=== PATIENT | female | born 1970 | race Caucasian/White ===

== ENCOUNTER 2019-11-25 13:17 | Outpatient (CLI) | payer BC, SELFPAY ==
--- NOTE | ~2019-11-25 | US_ITS ---
EXAMINATION: US pelvic complete w TV DATE: 11/25/2019 14:28 INDICATION: Pelvic pain. History of fibroids. Comparison:No prior studies for comparison. TECHNIQUE: Multiple transabdominal and endovaginal sonographic images of the pelvis performed. FINDINGS: The uterus measures 7.4 x 4 x 3.4 cm. There is fluid in the cervix. There are multiple fibr oids identified the largest measuring 1.3 cm maximum dimension. The endometrial complex measures 5 mm . The right ovary measures 2 x 3.7 x 2.2 cm and contains 2 cysts, largest measuring 2.2 cm. The left ov darren not visualized. There is no free fluid in the pelvis. There are no abnormal masses seen on either side. IMPRESSION: 1. Uterine fibroids, largest measuring 1.3 cm maximum dimension. 2: Fluid in the cervix without significant endometrial thickening, nonspecific. 3: Right ovarian cysts, largest measuring 2.2 cm maximum dimension. Reviewed, dictated and finalized at location A.
== END 2019-11-25 13:18 | disposition home or self-care (01) ==
PROVIDERS: Visit Provider Student in an Organized Health Care Education/Training Program
DX: R10.2 Pelvic and perineal pain (principal); D25.9 Leiomyoma of uterus, unspecified; N83.201 Unspecified ovarian cyst, right side
CPT/HCPCS: 76830; 76856

== ENCOUNTER 2022-09-08 08:09 | Outpatient (CLI) | payer BC, SELFPAY ==
[2022-09-08 18:40] LABS: Basophils Absolute Auto 0.1 K/mm3 (0.0-0.1); Basophils Percent Auto 1.1 % (0.2-1.2); Eosinophils Absolute Auto 0.3 K/mm3 (0-0.3); Eosinophils Percent Auto 5.2 % (0-4.4); Hematocrit 39.1 % (37.0-47.0); Hemoglobin 13.5 g/dL (12.0-15.0); Immature Granulocyte Absolute 0.01 K/mm3 (0.00-0.031); Immature Granulocyte Percent A 0.2 % (0-0.5); Lymphocytes Absolute Auto 2.11 K/mm3 (0.9-3.2); Lymphocytes Percent Auto 39.5 % (18.3-44.2); Mean Corpuscular HGB Conc 34.5 g/dl (32-36); Mean Corpuscular Hemoglobin 32.6 pg (26-34); Mean Corpuscular Volume 94.4 fl (80-100); Mean Platelet Volume 9.3 fl (7.4-10.4); Monocytes Absolute Auto 0.3 K/mm3 (0.1-0.6); Monocytes Percent Auto 6.4 % (2.6-8.5); Neutrophils Absolute Auto 2.5 K/mm3 (1.3-6.7); Neutrophils Percent Auto 47.6 % (45.5-73.1); Platelet Count Result 306 k/mm3 (150-375); Red Blood Count 4.14 M/mm3 (4.2-5.4); Red Cell Distribution Width 12.5 % (11.5-14.5); White Blood Count 5.3 K/mm3 (4.5-10.0)
[2022-09-08 19:46] LABS: Alanine Aminotransferase 21 U/L (6-35); Albumin Level 4.5 g/dL (3.5-5.1); Alkaline Phosphatase 74 U/L (38-126); Anion Gap 5 mmol/L (8-16); Aspartate Amino Transferase 37 U/L (14-36); Blood Urea Nitrogen 17 mg/dL (7-17); Calcium 8.8 mg/dL (8.4-10.2); Carbon Dioxide 29 mmol/L (22-30); Chloride 104 mmol/L (98-107); Cholesterol 237 mg/dL (0-200); Estimated Glomerular Filt Rate > 60; Glucose 85 mg/dL (65-110); HDL Direct 64 mg/dL; Sodium 138 mmol/L (137-145); Triglycerides 104 mg/dL (<150)
[2022-09-08 20:00] LABS: LDL Cholesterol Direct 116 mg/dL
[2022-09-08 20:47] LABS: Folic Acid > 20.0 ng/mL (2.76->20)
== END 2022-09-08 08:10 | disposition home or self-care (01) ==
LOC: ANHGOSHLAB 08:10
PROVIDERS: PCP Family Medicine; Visit Provider Physician Assistant
DX: D05.11 Intraductal carcinoma in situ of right breast (principal); Z78.0 Asymptomatic menopausal state
CPT/HCPCS: 36415; 80053; 80061; 82607; 82746; 84443; 85025

== ENCOUNTER 2022-09-10 13:29 | Outpatient (CLI) | payer BC, SELFPAY ==
--- NOTE | 2022-09-15 16:16 | WPDHOLTEREM ---
Holter/Event Monitor Holter/Event Monitor Date of procedure: 09/10/22 Holter/Event Procedure: 48 Hr Holter Monitor Indications: Palpitations Conclusion: 1. 48 hour holter monitor on 09/10/22. 2. Underlying rhythm is sinus rhythm. HR range 46-148 bpm; average HR 80 pm. HR at 148 bpm was at 21:29. 3. There are 15 premature supraventricular complexes. No supraventricular tachycardia. 4. There are 6 premature ventricular complexes. No ventricular tachycardia. 5. No sinoatrial or atrioventricular blocks. No significant pauses greater than 2 seconds. 6. Patient reports symptoms of heart palpitations, hot flash which demonstrate sinus rhythm at 75 bpm.
== END 2022-09-10 13:30 | disposition home or self-care (01) ==
PROVIDERS: PCP Family Medicine; Visit Provider Physician Assistant
DX: R00.2 Palpitations (principal)
CPT/HCPCS: 93225; 93226